=== PATIENT | female | born 1990 | race Caucasian/White ===

== ENCOUNTER 2017-01-05 11:51 | Emergency (ER) | payer OTHER ==
[~2017-01-05] VITALS: Ht 162.6 cm; Wt 89.3 kg
[2017-01-05 15:03] VITALS: BP 138/84
== END 2017-01-05 14:35 | disposition home or self-care (01) ==
LOC: ED 11:51
DX: F10.239 Alcohol dependence with withdrawal, unspecified (principal); F41.9 Anxiety disorder, unspecified